=== PATIENT | female | born 1950 | race Caucasian/White ===

== ENCOUNTER 2023-11-24 16:51 | Emergency (ER) | payer OTHER, MEDICAID ==
[~2023-11-24] VITALS: Ht 170.2 cm; Wt 68.0 kg
[2023-11-24 16:59] VITALS: BP_SYST 188; PULSE 98; RESP 20; TEMP 98.3; O2SAT 98
[2023-11-24] MEDS ORDERED: NEOM28.37 TP (17:13)
[2023-11-24] MEDS: BACITRACIN 1 GM OINT TP ONE (17:18)
[2023-11-24] MEDS: LIDOCAINE 1% 10 MG/ML, 20 ML MDV INJ ONE (17:19)
[2023-11-24] MEDS: DIPHTH,PERTUSS(ACELL),TET VAC 0.5 ML VIAL (Tdap) I.M. ONE (17:31)
[2023-11-24] MEDS ORDERED: NAPR-688 PO (18:31)
[2023-11-24 18:51] VITALS: BP_SYST 188; PULSE 98; RESP 20; TEMP 98.3; O2SAT 98
== END 2023-11-24 17:30 | disposition home or self-care (01) ==
LOC: SED 16:51
DX: S42.032A Displaced fracture of lateral end of left clavicle, initial encounter for closed fracture (principal); S71.111A Laceration without foreign body, right thigh, initial encounter; Z23 Encounter for immunization; Z79.899 Other long term (current) drug therapy; W18.39XA Other fall on same level, initial encounter; Y93.89 Activity, other specified; Y92.89 Other specified places as the place of occurrence of the external cause; Y99.8 Other external cause status
CPT/HCPCS: 73030; 90715; 99283